=== PATIENT | female | born 1965 | race American Indian/Alaskan Native ===

== ENCOUNTER 2018-09-11 12:18 | Inpatient (IN) | payer MEDICAID, OTHER ==
--- NOTE | 2018-09-11 12:40 | Event Note ---
ED Screening Note Date of service: 09/11/18 Time: 12:38 ED Screening Note: 52 y/o female with complaint of elevated BP. Currently on losartan This initial assessment/diagnostic orders/clinical plan/treatment(s) is/are subject to change based on patients health status, clinical progression and re- assessment by fellow clinical providers in the ED. Further treatment and workup at subsequent clinical providers discretion. Patient/guardian urged not to elope from the ED as their condition may be serious if not clinically assessed and managed. Initial orders include:
[2018-09-11] MEDS ORDERED: CATAPRES PO ONE (14:16)
[2018-09-11 14:20] LABS: Basophils % (Auto) 0.7 % (0.0-1.8); Eosinophils # (Auto) 0.1 K/mm3 (0.0-0.4); Eosinophils % (Auto) 1.4 % (0.0-4.3); Hematocrit 49.1 % (30.3-42.9); Hemoglobin 16.3 gm/dl (10.1-14.3); Lymphocytes # (Auto) 2.2 K/mm3 (1.2-5.4); Lymphocytes % (Auto) 33.4 % (13.4-35.0); Mean Corpuscular HGB Conc 33 % (30-34); Mean Corpuscular Volume 89 fl (79-97); Monocytes # (Auto) 0.7 K/mm3 (0.0-0.8); Platelet Count 195 K/mm3 (140-440); Red Blood Count 5.53 M/mm3 (3.65-5.03); Red Cell Distribution Width 17.5 % (13.2-15.2)
--- NOTE | 2018-09-11 14:30 | Emergency Department Report ---
HPI - General Chief Complaint: High BP Time Seen by Provider: 09/11/18 12:37 - HPI HPI: Room 23 The patient is a 52-year-old female presenting with a chief complaint of hypertension and headache. The patient states she has had a headache and dizziness for the past 3 days. Patient states she went to see her primary physician and was found to be hypertensive. Patient was given 1 dose of clonidine and sent home. The patient states her headache and dizziness has persisted. Patient states been compliant with her blood pressure medication. The patient states she has had right sided weakness for possibly 7-8 months. Patient states she saw her primary physician about it but was not given a diagnosis. The patient states she has had numbness in her left hand constantly for 1 month. Location: [See above] Duration: [See above] Quality: [See above] Severity: [See above] Modifying factors: [see above] Context: [see above] Mode of transportation: [not driving] ED Past Medical Hx - Past Medical History Hx Hypertension: Yes (X 5 YRS) Hx Arthritis: Yes Hx COPD: Yes (no home O2) - Surgical History Past Surgical History?: No Additional Surgical History: Herniorrhaphy - Family History Family history: no significant - Social History Smoking Status: Current Every Day Smoker (1/2 pack per day) Substance Use Type: None (denies illicit drug use), Alcohol (rarely) - Medications Home Medications: Home Medications Medication Instructions Recorded Confirmed Last Taken Type Meloxicam [Mobic] 7.5 mg PO QDAY 01/15/16 01/15/16 01/17/16 07:45 History traMADol [Ultram 50 MG tab] 100 mg PO PRN PRN 01/15/16 01/15/16 01/17/16 07:45 History Cyclobenzaprine [Flexeril] 10 mg PO PRN PRN 09/11/18 09/11/18 Unknown History Losartan [Cozaar] 50 mg PO QDAY 09/11/18 09/11/18 09/10/18 History Methocarbamol [Robaxin] 500 mg PO BID 09/11/18 09/11/18 09/11/18 History Paroxetine HCl [Paxil] 20 mg PO QDAY 09/11/18 09/11/18 Unknown History Pregabalin [Lyrica] 75 mg PO QDAY 09/11/18 09/11/18 09/10/18 History hydroCHLOROthiazide [Hctz] 12.5 mg PO QAM 09/11/18 09/11/18 09/10/18 History ED Review of Systems ROS: Stated complaint: HYPERTENSION Other details as noted in HPI Constitutional: no symptoms reported Eyes: denies: eye pain ENT: denies: throat pain Respiratory: no symptoms reported Cardiovascular: denies: chest pain Endocrine: no symptoms reported Gastrointestinal: denies: abdominal pain, nausea, vomiting Genitourinary: denies: dysuria Musculoskeletal: denies: back pain Neurological: headache, vertigo Physical Exam - Physical Exam Vital Signs: Vital Signs 09/11/18 09/11/18 12:21 12:29 Temperature 97.8 F 97.8 F Pulse Rate 94 H 94 H Respiratory 18 20 Rate Blood Pressure 243/142 Blood Pressure 243/142 [Left] O2 Sat by Pulse 95 95 Oximetry Physical Exam: GENERAL: The patient is well-developed well-nourished female sitting on stretcher not appearing to be in acute distress. [] HEENT: Normocephalic. Atraumatic. Extraocular motions are intact. Patient has moist mucous membranes. NECK: Supple. Trachea midline CHEST/LUNGS: Clear to auscultation. There is no respiratory distress noted. HEART/CARDIOVASCULAR: Regular. There is no tachycardia. There is no gallop rub or murmur. ABDOMEN: Abdomen is soft, nontender. Patient has normal bowel sounds. There is no abdominal distention. SKIN: There is no rash. There is no edema. There is no diaphoresis. NEURO: The patient is awake, alert, and oriented. The patient is cooperative. There is right-sided weakness otherwise cranial nerves II through XII grossly intact. The patient has normal speech MUSCULOSKELETAL: There is no evidence of acute injury. ED Course Vital Signs 09/11/18 09/11/18 12:21 12:29 Temperature 97.8 F 97.8 F Pulse Rate 94 H 94 H Respiratory 18 20 Rate Blood Pressure 243/142 Blood Pressure 243/142 [Left] O2 Sat by Pulse 95 95 Oximetry - Reevaluation(s) Reevaluation #1: 09/11/18 15:44 Patient states her headache has decreased to approximate 6-7/10. Patient states she still has numbness to the left hand ED Medical Decision Making - Lab Data Result diagrams: 09/11/18 13:32 06/16/19 14:33 - EKG Data -: EKG Interpreted by Me EKG shows normal: sinus rhythm Rate: normal - EKG Data When compared to previous EKG there are: previous EKG unavailable Interpretation: nonspecific ST-T wave david (T-wave inversion in lead aVL) - Radiology Data Radiology results: report reviewed (CT head), image reviewed [facility] [address] [place] [address] Cat Scan Report Signed Patient: LAVONNE MENA MR#: [id number] : 1965 Acct:[id number] Age/Sex: 52 / F ADM Date: 09/11/18 Loc: ED Attending Dr: Ordering Physician: GARFIELD WICK MD Date of Service: 09/11/18 Procedure(s): CT head/brain wo con Accession Number(s): [id number] cc: GARFIELD WICK MD PROCEDURE: CT HEAD/BRAIN WO CON TECHNIQUE: Computerized tomography of the head was performed without contrast material. CT DOSE LENGTH PRODUCT: 927.7 mGycm HISTORY: hypertension, headache, dizziness COMPARISONS: None . FINDINGS: Brain: Brain density appears normal. No evidence of intracranial hemorrhage. No parenchymal hemorrhage, mass lesions or mass effect are seen. No abnormal extra- axial fluid collects or masses are seen. Ventricles: Ventricles are normal size and are midline. Bone Windows: Small amount of mucosal thickening and fluid visualized posteriorly in the sphenoid sinus suggesting acute sinusitis. Paranasal sinuses otherwise appear clear. Paranasal sinuses: Clear. Mastoid air cells: There is opacification of a few of the mastoid air cells on the right inferiorly. I cannot exclude early acute mastoiditis. Mastoid air cells bilaterally otherwise are clear. IMPRESSION: Negative unenhanced CT scan of brain. Mild paranasal sinus disease. Mucosal thickening and small amount of fluid visualized in the sphenoid sinus. I cannot exclude minimal acute sinusitis. There is opacification of a few of the mastoid air cells on the right as described. I cannot exclude early acute mastoiditis. . This document is electronically signed by Aldo Leyva MD., September 11 2018 03:21:17 PM ET Transcribed By: DFN Dictated By: ALDO LEYVA MD Electronically Authentica ct By: ALDO LEYVA MD Signed Date/Time: 09/11/18 1523 DD/ 1510 TD/TT: 09/11/18 151 - Differential Diagnosis hypertensive urgency, intracranial hemorrhage, Critical care attestation.: If time is entered above; I have spent that time in minutes in the direct care of this critically ill patient, excluding procedure time. ED Disposition Clinical Impression: Hypertensive urgency, Headache, Dizziness Disposition: OP ADMIT IP TO THIS HOSP Is pt being admited?: Yes Does the pt Need Aspirin: Yes Condition: Fair Referrals: BRANDEE REEVES MD [Primary Care Provider] - 3-5 Days Time of Disposition: 15:45 (hospitalist notified (Dr Marc))
[2018-09-11 15:08] LABS: Alanine Aminotransferase 54 units/L (7-56); Albumin 4.2 g/dL (3.9-5); BUN/Creatinine Ratio 17; Blood Urea Nitrogen 12 mg/dL (7-17); Hemolysis Index 6
--- NOTE | 2018-09-11 15:23 | Cat Scan Report ---
PROCEDURE: CT HEAD/BRAIN WO CON TECHNIQUE: Computerized tomography of the head was performed without contrast material. CT DOSE LENGTH PRODUCT: 927.7 mGycm HISTORY: hypertension, headache, dizziness COMPARISONS: None . FINDINGS: Brain: Brain density appears normal. No evidence of intracranial hemorrhage. No parenchymal hemorr danny, mass lesions or mass effect are seen. No abnormal extra-axial fluid collects or masses are see n. Ventricles: Ventricles are normal size and are midline. Bone Windows: Small amount of mucosal thickening and fluid visualized posteriorly in the sphenoid sin us suggesting acute sinusitis. Paranasal sinuses otherwise appear clear. Paranasal sinuses: Clear. Mastoid air cells: There is opacification of a few of the mastoid air cells on the right inferiorly. I cannot exclude early acute mastoiditis. Mastoid air cells bilaterally otherwise are clear. IMPRESSION: Negative unenhanced CT scan of brain. Mild paranasal sinus disease. Mucosal thickening and small amount of fluid visualized in the sphenoid sinus. I cannot exclude minimal acute sinusitis. There is opacification of a few of the mastoid air cells on the right as described. I cannot exclude early acute mastoiditis. . This document is electronically signed by Aldo Kingsley MD., September 11 2018 03:21:17 PM ET
[2018-09-11] MEDS ORDERED: ASPIRIN PO ONE (15:46)
--- NOTE | 2018-09-11 16:11 | History and Physical Report ---
History of Present Illness Chief complaint: confused History of present illness: 52 Yo Female with Nicotine Dependence, OA, HTN, COPD presents to ED for evaluation. Pt is lethargic and provides limited history at time of exam. Pt history taken from ED staff and medical record. Pt was seen and evaluated by her PCP and complained of headache over the past 3 days. Pt SBP was above 240. Pt instructed to seek further care at [facility]. Pt transported to [facility] via private vehicle. Pt seen and evaluated in ED and found to have Hypertensive Emergency, Hypertensive Encephalopathy. Pt admitted to telemetry but subsequently downg raded to medical floor with rapid response to antihypertensive therapy. No reports of fever, chills, chest pain, palpitations, NVD, Trauma, productive cough, skin rash or recent ill contacts. No prior admission for review. All listed medication reconciled at time of exam. Past History Past Medical History: arthritis, COPD, hypertension Past Surgical History: hernia repair Social history: single, smoking Family history: hypertension Medications and Allergies Allergies Allergy/AdvReac Type Severity Reaction Status Date / Time No Known Allergies Allergy Verified 09/11/18 12:19 Home Medications Medication Instructions Recorded Confirmed Last Taken Type Meloxicam [Mobic] 15 mg PO QDAY 01/15/16 09/11/18 09/10/18 History traMADol [Ultram 50 MG tab] 50 mg PO PRN PRN 01/15/16 09/11/18 09/11/18 History Cyclobenzaprine [Flexeril] 10 mg PO PRN PRN 09/11/18 09/11/18 Unknown History Losartan [Cozaar] 50 mg PO QDAY 09/11/18 09/11/18 09/10/18 History Methocarbamol [Robaxin] 500 mg PO BID 09/11/18 09/11/18 09/11/18 History Paroxetine HCl [Paxil] 20 mg PO QDAY 09/11/18 09/11/18 Unknown History Pregabalin [Lyrica] 75 mg PO QDAY 09/11/18 09/11/18 09/10/18 History hydroCHLOROthiazide [Hctz] 12.5 mg PO QAM 09/11/18 09/11/18 09/10/18 History Review of Systems ROS unobtainable: due to mental status Exam - Constitutional Vitals: Temp Pulse Resp BP Pulse Ox 97.8 F 52 L 18 175/92 93 09/11/18 12:29 09/11/18 15:57 09/11/18 15:57 09/11/18 15:57 09/11/18 15:57 General appearance: Present: mild distress, obese - EENT Eyes: Present: PERRL ENT: hearing intact, clear oral mucosa - Neck Neck: Present: supple, normal ROM - Respiratory Respiratory effort: normal Respiratory: bilateral: diminished, rhonchi - Cardiovascular Heart Sounds: Present: S1 & S2. Absent: rub, click - Extremities Extremities: pulses symmetrical, No edema Peripheral Pulses: within normal limits - Abdominal General gastrointestinal: Present: soft, non-tender, non-distended, normal bowel sounds Female genitourinary: Present: normal - Integumentary Integumentary: Present: clear, warm, dry - Musculoskeletal Musculoskeletal: generalized weakness - Psychiatric Psychiatric: no appropriate mood/affect, no intact judgment & insight, no memory intact - Neurologic Neurologic: CNII-XII intact, moves all extremities, no gait normal Results - Labs CBC & Chem 7: 09/11/18 13:32 09/11/18 14:33 Labs: Abnormal lab results 09/11/18 09/11/18 Range/Units 13:32 14:33 RBC 5.53 H (3.65-5.03) M/mm3 Hgb 16.3 H (10.1-14.3) gm/dl Hct 49.1 H (30.3-42.9) % RDW 17.5 H (13.2-15.2) % Taney % (Auto) 10.0 H (0.0-7.3) % Glucose 113 H (65-100) mg/dL Alkaline Phosphatase 311 H (35-129) units/L Total Protein 8.4 H (6.3-8.2) g/dL Assessment and Plan - Patient Problems (1) Encephalopathy Current Visit: Yes Status: Acute Plan to address problem: CT Head, neuro check, seizure precautions, blood pressure control. (2) Hypertensive urgency Current Visit: Yes Status: Acute Plan to address problem: Monitor BP q shift, supportive care, IV hydralazine prn SBP >185, goal systolic BP overnight between 165-184, (3) Obesity hypoventilation syndrome Current Visit: Yes Status: Acute Plan to address problem: supplemental oxygen, nebulizer therapy, NIPPV as clinically indicated, balanced diet, increased physical activity at discharge (4) DVT prophylaxis Current Visit: Yes Status: Acute Plan to address problem: SCD to BLE while in bed,
[2018-09-11] MEDS ORDERED: PERCOCET 5/325 PO PRN (16:13)
[2018-09-11] MEDS ORDERED: SODIUM CHLORIDE FLUSH SYRINGE 10 ML IV PRN (16:13)
[2018-09-11] MEDS ORDERED: ULTRAM PO PRN (16:15)
[2018-09-11] MEDS ORDERED: FLEXERIL PO PRN (16:15)
[2018-09-11] MEDS ORDERED: APRESOLINE IV PRN (16:17)
[2018-09-11] MEDS ORDERED: ASPIRIN ONE (17:06)
[2018-09-11] MEDS: ROBAXIN PO SCH (22:10)
[2018-09-11] MEDS: SODIUM CHLORIDE FLUSH SYRINGE 10 ML IV SCH (22:10)
[2018-09-12] MEDS ORDERED: PAROXETINE HCL 20 MG PO SCH (10:00)
[2018-09-12] MEDS ORDERED: COZAAR PO SCH (10:00)
[2018-09-12] MEDS ORDERED: COZAAR ONE (10:14)
[2018-09-12] MEDS ORDERED: HCTZ ONE (10:15)
[2018-09-12] MEDS: HCTZ PO SCH (10:41)
[2018-09-12] MEDS: LYRICA PO SCH (10:41)
[2018-09-12] MEDS: MOBIC PO SCH (10:41)
[2018-09-12] MEDS: PAXIL PO SCH (10:42)
[2018-09-12] MEDS: ROBAXIN PO SCH ×2 (10:42→22:24)
[2018-09-12] MEDS: SODIUM CHLORIDE FLUSH SYRINGE 10 ML IV SCH ×2 (11:27→22:25)
--- NOTE | 2018-09-12 13:38 | Cat Scan Report ---
PROCEDURE: CT CERVICAL SPINE WO CON TECHNIQUE: Computerized tomography of the cervical spine was performed from the skull base to T1 with out contrast material. Coronal and sagittal reconstructed imaging provided. This study is performed w ithout intravenous contrast and the sensitivity for pathology, including neoplasms, adenopathy, absce ss, inflammation and infection is reduced. CT DOSE LENGTH PRODUCT: 721 mGy-cm. HISTORY: tia COMPARISONS: None currently available. FINDINGS: There is no fracture. There is no subluxation. There is no atlantooccipital dislocation. C1-C2: Intact. C2-T1: Mild to moderate degenerative discs. Minimal to mild spinal canal narrowing. Some neural soto inal narrowing. Prevertebral soft tissues are unremarkable. Heterogenous, enlarged thyroid gland. A distinct nodule is not evident; however, nodules are not excl uded. IMPRESSION: * No reference lines provided. * No acute fracture. * Degenerative discs and arthropathy. * Enlarged heterogeneous thyroid. This document is electronically signed by Len Murphy MD., September 12 2018 01:36:27 PM ET
--- NOTE | 2018-09-12 13:48 | Magnetic Resonance Report ---
MRI OF THE BRAIN WITHOUT CONTRAST: HISTORY: CVA PROCEDURE: Multiplanar, multisequence MR imaging of the brain without IV contrast was performed. FINDINGS: Compared to the CT dated 09/11/18. A 1.8 x 1.6 x 1.1 cm extramedullary intradural mass is suspected at the craniocervical junction which exerts mass effect on the upper cervical spine/medulla. Severe central canal stenosis is demonstrated at the C1 level. Although no IV contrast was administered, I suspect this represents a meningioma. Further evaluation with MRI with contrast is recommended. There are moderate nonspecific chronic white matter changes bilaterally. Otherwise, the brain parenchyma signal intensity and its brothers white interface are within normal limits on all sequences. No evidence for acute ischemia or hemorrhage. No chronic infarct or extra-axial fluid collection. The midline structures are central. The basal cisterns are patent. Normal ventricular size. The orbital cavities and sella turcica demonstrate no abnormality. The visualized paranasal sinuses and mastoid air cells are well aerated. IMPRESSION: Mass at the craniocervical junction is identified as outlined above. There is significant mass effect on the upper spinal cord/medulla resulting in severe canal stenosis at the C1 level. This appears to represent an extra medullary, intradural mass consistent with a meningioma. Further evaluation with MRI cervical spine with contrast including the craniocervical junction is recommended. Nonspecific white matter changes.
--- NOTE | 2018-09-12 14:40 | Progress Note ---
Assessment and Plan Assessment and plan: 52 Yo Female with Nicotine Dependence, OA, HTN, COPD presents to ED for evaluation. Pt is lethargic and provides limited history at time of exam. Pt initial history taken from ED staff and medical record. Pt was seen and evaluated by her PCP and complained of headache over the past 3 days. Pt SBP was above 240. On further discussion the patient reports that while visiting her primary pain specialist she was asked to go see her PCP as they felt she may have had a stroke and her PCP sent her to the ED for further evaluation. Patient on arrival had improvement to antihypertensive therapy with improvement in the Headache, but on further discussion she reports a concerning story of right upper ext for about 6 months and 1 month of ongoing and worsening parasthesia. she also has a chronic right hip pain for which she is followed by pain clinic. Bilateral Parastheisa rule out CERVIACAL RADICULOPATHY Hypertensive Urgency Toxic Metabolic Encephlopathy-Resolving Morbid obesity Headache secondary to hypertension Plan Neurology eval Continue BP meds, adjust losartan to 100mg for better control Will obtain MRI HEAD AND CERVICAL SPINE CT DUE TO EVALUATE CERVICAL SPINE ISSUES THAT MAY LED TO THIS Discussed with Radiology, there is concern for Meningoma and with mass effect, awaiting full report, awaiting MRI Cervical spine with contrast Based on the result of the MRI cervical spine, the patient may need transfer to a tertiary facility ASA, STATIN DVT/GI PROPHY NEUROCHECKS Plan discussed with pcp History Interval history: Patient seen and examined, headache is resolved, but her symptoms although ongoing for about 6 months and now in the last month with parasthesia of the left upper ext. Hospitalist Physical - Physical exam Narrative exam: VITAL SIGNS: Reviewed. GENERAL: The patient appeared well nourished and normally developed, Vital signs as documented. HEAD: No signs of head trauma. EYES: Pupils are equal. Extraocular motions intact. EARS: Hearing grossly intact. MOUTH: Oropharynx is normal. NECK: No adenopathy, no JVD. CHEST: Chest with clear breath sounds bilaterally. No wheezes, rales, or rhonchi. CARDIAC: Regular rate and rhythm. S1 and S2, without murmurs, gallops, or rubs. VASCULAR: No Edema. Peripheral pulses normal and equal in all extremities. ABDOMEN: Soft, non tender and non distended. No rebound or guarding, and no masses palpated. Bowel Sounds normal. MUSCULOSKELETAL: Good range of motion of all major joints. Extremities without clubbing, cyanosis or edema. NEUROLOGIC EXAM: Alert and oriented x 3 4/5 motor strenth bilaterally. Speech normal. Follows commands. PSYCHIATRIC: Mood normal. SKIN: No rash or lesions. - Constitutional Vitals: Temp Pulse Resp BP Pulse Ox 97.8 F 55 L 19 171/96 92 09/11/18 12:29 09/12/18 11:46 09/12/18 11:46 09/12/18 11:46 09/12/18 11:46 General appearance: Present: mild distress, obese Results - Labs CBC & Chem 7: 09/11/18 13:32 09/11/18 14:33 Labs: Laboratory Last Values WBC 6.7 K/mm3 (4.5-11.0) 09/11/18 13:32 RBC 5.53 M/mm3 (3.65-5.03) H 09/11/18 13:32 Hgb 16.3 gm/dl (10.1-14.3) H 09/11/18 13:32 Hct 49.1 % (30.3-42.9) H 09/11/18 13:32 MCV 89 fl (79-97) 09/11/18 13:32 MCH 29 pg (28-32) 09/11/18 13:32 MCHC 33 % (30-34) 09/11/18 13:32 RDW 17.5 % (13.2-15.2) H 09/11/18 13:32 Plt Count 195 K/mm3 (140-440) 09/11/18 13:32 Lymph % (Auto) 33.4 % (13.4-35.0) 09/11/18 13:32 Osborne % (Auto) 10.0 % (0.0-7.3) H 09/11/18 13:32 Eos % (Auto) 1.4 % (0.0-4.3) 09/11/18 13:32 Baso % (Auto) 0.7 % (0.0-1.8) 09/11/18 13:32 Lymph # 2.2 K/mm3 (1.2-5.4) 09/11/18 13:32 Osborne # 0.7 K/mm3 (0.0-0.8) 09/11/18 13:32 Eos # 0.1 K/mm3 (0.0-0.4) 09/11/18 13:32 Baso # 0.0 K/mm3 (0.0-0.1) 09/11/18 13:32 Seg Neutrophils % 54.5 % (40.0-70.0) 09/11/18 13:32 Seg Neutrophils # 3.6 K/mm3 (1.8-7.7) 09/11/18 13:32 Sodium 141 mmol/L (137-145) 09/11/18 14:33 Potassium 4.2 mmol/L (3.6-5.0) 09/11/18 14:33 Chloride 101.7 mmol/L (98-107) 09/11/18 14:33 Carbon Dioxide 28 mmol/L (22-30) 09/11/18 14:33 16 mmol/L 09/11/18 14:33 BUN 12 mg/dL (7-17) 09/11/18 14:33 0.7 mg/dL (0.7-1.2) 09/11/18 14:33 Estimated GFR > 60 ml/min 09/11/18 14:33 17 % 09/11/18 14:33 Glucose 113 mg/dL (65-100) H 09/11/18 14:33 Calcium 10.0 mg/dL (8.4-10.2) 09/11/18 14:33 0.70 mg/dL (0.1-1.2) 09/11/18 14:33 AST 30 units/L (5-40) 09/11/18 14:33 ALT 54 units/L (7-56) 09/11/18 14:33 311 units/L (35-129) H 09/11/18 14:33 8.4 g/dL (6.3-8.2) H 09/11/18 14:33 4.2 g/dL (3.9-5) 09/11/18 14:33 1.0 % 09/11/18 14:33 Active Medications - Current Medications Current Medications: Generic Name Dose Route Start Last Admin Trade Name Freq PRN Reason Stop Dose Admin Aspirin 325 mg 09/13/18 10:00 Aspirin PO QDAY [facility] Atorvastatin Calcium 40 mg 09/12/18 22:00 Lipitor PO QHS AVIS Cyclobenzaprine HCl 10 mg 09/11/18 16:15 Flexeril PO Q8H PRN Pain, Moderate (4-6) Enoxaparin Sodium 40 mg 09/12/18 22:00 Lovenox SUB-Q QDAY@2200 AVIS Hydralazine HCl 10 mg 09/11/18 16:17 Apresoline IV Q4H PRN Hypertension SBP > 185 Hydrochlorothiazide 12.5 mg 09/12/18 10:00 09/12/18 10:41 Hctz PO 12.5 mg QAM AVIS Administration Losartan Potassium 50 mg 09/12/18 10:00 09/12/18 10:41 Cozaar PO 50 mg QDAY AVIS Administration Meloxicam 15 mg 09/12/18 10:00 09/12/18 10:41 Mobic PO 15 mg QDAY [facility]IS Administration Methocarbamol 500 mg 09/11/18 22:00 09/12/18 10:42 Robaxin PO 500 mg BID AVIS Administration Oxycodone/Acetaminophen 1 tab 09/11/18 16:13 Percocet 5/325 PO Q6H PRN Pain, Moderate (4-6) Paroxetine HCl 20 mg 09/12/18 10:00 09/12/18 10:42 Paxil PO 20 mg DAILY [facility]IS Administration Pregabalin 75 mg 09/12/18 10:00 09/12/18 10:41 Lyrica PO 75 mg QDAY AVIS Administration Sodium Chloride 10 ml 09/11/18 22:00 09/12/18 11:27 Sodium Chloride Flush Syringe 10 Ml IV 10 ml BID AVIS Administration Sodium Chloride 10 ml 09/11/18 16:13 Sodium Chloride Flush Syringe 10 Ml IV PRN PRN LINE FLUSH Tramadol HCl 50 mg 09/11/18 16:15 Ultram PO Q8H PRN Pain, MILD
[2018-09-12] MEDS ORDERED: COZAAR PO ONE (15:00)
--- NOTE | 2018-09-12 17:40 | Consultation ---
History of Present Illness Consult date: 09/12/18 Chief complaint: RUE paresthesias History of present illness: This is a 52 YO F who has had weakness and paresthesias for about 6 months. She came to the ED because of headache and high blood pressure. Those symptoms are improving. She had an MRI Brain that shows a meningioma that may has some mass effect on the cervical spine. [facility] for this. Past History Past Medical History: arthritis, COPD, hypertension Past Surgical History: hernia repair Social history: single, smoking Family history: hypertension Medications and Allergies Allergies Allergy/AdvReac Type Severity Reaction Status Date / Time No Known Allergies Allergy Verified 09/11/18 12:19 Home Medications Medication Instructions Recorded Confirmed Last Taken Type Meloxicam [Mobic] 15 mg PO QDAY 01/15/16 09/11/18 09/10/18 History traMADol [Ultram 50 MG tab] 50 mg PO PRN PRN 01/15/16 09/11/18 09/11/18 History Cyclobenzaprine [Flexeril] 10 mg PO PRN PRN 09/11/18 09/11/18 Unknown History Losartan [Cozaar] 50 mg PO QDAY 09/11/18 09/11/18 09/10/18 History Methocarbamol [Robaxin] 500 mg PO BID 09/11/18 09/11/18 09/11/18 History Paroxetine HCl [Paxil] 20 mg PO QDAY 09/11/18 09/11/18 Unknown History Pregabalin [Lyrica] 75 mg PO QDAY 09/11/18 09/11/18 09/10/18 History hydroCHLOROthiazide [Hctz] 12.5 mg PO QAM 09/11/18 09/11/18 09/10/18 History Active Meds: Active Medications Aspirin (Aspirin) 325 mg PO QDAY [facility] Atorvastatin Calcium (Lipitor) 40 mg PO QHS [facility] Cyclobenzaprine HCl (Flexeril) 10 mg PO Q8H PRN PRN Reason: Pain, Moderate (4-6) Enoxaparin Sodium (Lovenox) 40 mg SUB-Q QDAY@2200 [facility] Hydralazine HCl (Apresoline) 10 mg IV Q4H PRN PRN Reason: Hypertension SBP > 185 Hydrochlorothiazide (Hctz) 12.5 mg PO QAM [facility] Last Admin: 09/12/18 10:41 Dose: 12.5 mg Documented by: Losartan Potassium (Cozaar) 100 mg PO QDAY [facility] Meloxicam (Mobic) 15 mg PO QDAY [facility] Last Admin: 09/12/18 10:41 Dose: 15 mg Documented by: Methocarbamol (Robaxin) 500 mg PO BID [facility] Last Admin: 09/12/18 10:42 Dose: 500 mg Documented by: Oxycodone/Acetaminophen (Percocet 5/325) 1 tab PO Q6H PRN PRN Reason: Pain, Moderate (4-6) Paroxetine HCl (Paxil) 20 mg PO DAILY [facility] Last Admin: 09/12/18 10:42 Dose: 20 mg Documented by: Pregabalin (Lyrica) 75 mg PO QDAY [facility] Last Admin: 09/12/18 10:41 Dose: 75 mg Documented by: Sodium Chloride (Sodium Chloride Flush Syringe 10 Ml) 10 ml IV BID [facility] Last Admin: 09/12/18 11:27 Dose: 10 ml Documented by: Sodium Chloride (Sodium Chloride Flush Syringe 10 Ml) 10 ml IV PRN PRN PRN Reason: LINE FLUSH Tramadol HCl (Ultram) 50 mg PO Q8H PRN PRN Reason: Pain, MILD Review of Systems Musculoskeletal: arm numbness/tingling Physical Examination - Vital Signs Vital Signs: Vital Signs Temp Pulse Resp BP Pulse Ox 97.8 F 94 H 18 243/142 95 09/11/18 12:21 09/11/18 12:21 09/11/18 12:21 09/11/18 12:21 09/11/18 12:21 - Constitutional General appearance: comfortable - EENT EENT: Present: PERRL - Respiratory Respiratory: Present: lungs clear - Cardiovascular Cardiovascular: Present: regular rate - Gastrointestinal Gastrointestinal: Present: normoactive bowel sounds - Neurologic Cranial nerve examination: PERRL, EOMI, VFF, V1/V2/V3 grossly intact, face symmetric Speech examination: intact Motor examination - right side: 3/5: hip flexors, knee extensors, dorsiflexion, toe extension (EHL), 4/5: biceps, triceps, wrist flexion, 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, 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 Motor examination - left side: 5/5: biceps, triceps, wrist flexion, 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, 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, hip flexors, knee extensors, dorsiflexion, toe extension (EHL), plantarflexion Reflexes: 1+: ankle, bicep, knee, tricep Results - Laboratory Findings CBC and BMP: 09/11/18 13:32 09/11/18 14:33 Abnormal Lab Findings: Abnormal Labs 09/11/18 09/11/18 13:32 14:33 RBC 5.53 H Hgb 16.3 H Hct 49.1 H RDW 17.5 H [place] % (Auto) 10.0 H Glucose 113 H Alkaline Phosphatase 311 H Total Protein 8.4 H - Diagnostic Findings Additional findings: MR Brain- brain is fine, mass effect from a likely meningioma Assessment and Plan This is a 52 YO F with a meningioma causing mass effect on the cervical spine and weakness. Recommend: Agree with MR cervical spine w/wo as you are doing but pt will ultimately need neurosurgical eval for likely removal. Will also start Decadron for edema, please cover with SSI if needed Follow BP closely now that pt will be on steroids Continue care for all medical issues as you are doing Call with questions.
[2018-09-12] MEDS ORDERED: DECADRON IV ONE ×2 (17:44→23:00)
--- NOTE | 2018-09-12 21:21 | Vascular Lab Report ---
PROCEDURE: VL CAROTID DUPLEX BILAT TECHNIQUE: Duplex Doppler ultrasound of the common, internal and external carotid arteries and the v ertebral arteries was performed bilaterally. Ly scale imaging, velocity spectral waveform analysis, and color flow Doppler were employed. HISTORY: tia COMPARISONS: None . Note: Measurement of carotid stenosis is based on flow velocity values that correlate with the [place] Symptomatic Carotid Endarterectomy Trial (NASCET) based stenosis criteria using the internal carotid artery diameter as the denominator for stenosis calculation. FINDINGS: RIGHT carotid artery: Velocities: ICA PSV: 75 cm/sec ICA End diastolic: 14 cm/sec CCA PSV: 90 cm/sec IC/CC ratio: 0.8 Plaque/color flow: Mild heterogeneous plaque without significant spectral broadening or abnormal col or flow . RIGHT vertebral artery: Antegrade systolic and diastolic flow LEFT carotid artery: Velocities: ICA PSV: 79 cm/sec ICA End diastolic: 19 cm/sec CCA PSV: 90 cm/sec IC/CC ratio: 0.9 Plaque/color flow: Mild heterogeneous plaque without significant spectral broadening or abnormal col or flow . LEFT vertebral artery: Antegrade systolic and diastolic flow IMPRESSION: 1. RIGHT carotid: No evidence of stenosis. 2. LEFT carotid: No evidence of stenosis. 3. Vertebral arteries: Bilaterally antegrade. This document is electronically signed by Prabhjot Woo MD., September 12 2018 09:18:58 PM ET
[2018-09-12] MEDS ORDERED: DECADRON IV SCH (22:00)
[2018-09-12] MEDS: LOVENOX SUB-Q SCH (22:25)
[2018-09-12] MEDS ORDERED: MIRALAX 3350 PO PRN (23:03)
[2018-09-12] MEDS: COLACE PO SCH (23:41)
[2018-09-13] MEDS: DECADRON IV SCH ×4 (03:56→23:08)
[2018-09-13 06:50] LABS: Chol/HDL Ratio 3.89 %
[2018-09-13] MEDS: COZAAR PO SCH ×2 (08:38→09:22)
[2018-09-13] MEDS: HCTZ PO SCH ×2 (08:39→09:22)
[2018-09-13] MEDS: COLACE PO SCH ×2 (09:21→22:03)
[2018-09-13] MEDS: ROBAXIN PO SCH ×2 (09:21→22:02)
[2018-09-13] MEDS: PAXIL PO SCH (09:21)
[2018-09-13] MEDS: MOBIC PO SCH (09:21)
[2018-09-13] MEDS: ASPIRIN PO SCH (09:22)
[2018-09-13] MEDS: LYRICA PO SCH (09:23)
[2018-09-13] MEDS: SODIUM CHLORIDE FLUSH SYRINGE 10 ML IV SCH ×2 (09:23→22:04)
--- NOTE | 2018-09-13 15:01 | Magnetic Resonance Report ---
MR CERVICAL SPINE WITH AND WITHOUT CONTRAST HISTORY: Meningioma with mass effect. TECHNIQUE: Axial T2 and T2 gradient. Sagittal T1, T2 and STIR. Post contrast T1 fat-sat images and axial and sagittal planes. COMPARISON: MR brain without contrast 09/12/18. CT cervical spine without contrast 09/12/18. FINDINGS: A 1.6 x 1.1 x 2.5 cm homogeneously enhancing extra axial mass is identified within the spinal canal at the level of C1. This is located just posterior to the dens. A dural tail is identified confirming a meningioma. This meningioma exerts mass effect on the right side of the spinal cord and results in severe central canal narrowing at the level of C1. There is however no abnormal signal within the spinal cord. Normal height and alignment of the cervical vertebral bodies. Normal bone marrow signal. Mild used disc desiccation and narrowing. The facet joints are in appropriate relationship. No significant joint pathology or hypertrophic changes. The paraspinal soft tissues are within normal limits. C2-3: No significant abnormality. C3-4: Moderate left uncovertebral spurring is identified resulting in left neuroforaminal stenosis estimated at 50-75 %. C4-5: No significant abnormality. C5-6: No significant abnormality. C6-7: No significant abnormality. C7-T1: A mild diffuse posterior bulging disc is identified. Mild bilateral uncovertebral spurring. Bilateral neural foraminal narrowing is estimated at 50%. 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 Mild cervical spondylosis. No evidence for fracture or malalignment.
--- NOTE | 2018-09-13 18:30 | Progress Note ---
Assessment and Plan Assessment and plan: 52 Yo Female with Nicotine Dependence, OA, HTN, COPD presents to ED for evaluation. Pt is lethargic and provides limited history at time of exam. Pt initial history taken from ED staff and medical record. Pt was seen and evaluated by her PCP and complained of headache over the past 3 days. Pt SBP was above 240. On further discussion the patient reports that while visiting her primary pain specialist she was asked to go see her PCP as they felt she may have had a stroke and her PCP sent her to the ED for further evaluation. Patient on arrival had improvement to antihypertensive therapy with improvement in the Headache, but on further discussion she reports a concerning story of right upper ext numbness and tingling for about 6 months and 1 month of ongoing and worsening paraesthesia. she also has a chronic right hip pain for which she is followed by pain clinic. Bilateral Parastheisa rule out CERVIACAL RADICULOPATHY Hypertensive Urgency Toxic Metabolic Encephlopathy-Resolving Morbid obesity Headache secondary to hypertension Plan Neurology eval done Continue BP meds. Losartan dose increased to 100mg for better control Hospitalist discussed with Radiology, there is concern for Meningoma and with mass effect, awaiting full report, awaiting MRI Cervical spine with contrast ASA, STATIN DVT/GI PROPHY NEUROCHECKS Addendum MRI Cervical spine with contrast reveals intraspinal meningioma at level of C1 with mass effect on upper cervical spine. Will discuss with Neurology History Interval history: Numbness and tingling right upper and lower ext Hospitalist Physical - Physical exam Narrative exam: Gen: Not in acute distress, lying in bed,morbidly obese HEENT: Normocephalic, atraumatic Neck: supple, no JVD Heart: S1 and S2 reg, no murmurs, rubs or gallop Lungs: Clear, no crackles, no wheeze Abd: soft, non tender, non distended, normal BS Ext: No edema, no clubbing, no cyanosis, Neuro: Awake,alert, oriented x 3, paraesthesia right side, right sided weakness 3/5 - Constitutional Vitals: Temp Pulse Resp BP Pulse Ox 98.0 F 78 16 164/93 94 09/13/18 11:32 09/13/18 11:30 09/13/18 11:32 09/13/18 11:30 09/13/18 11:30 General appearance: Present: obese Results - Labs CBC & Chem 7: 09/11/18 13:32 09/11/18 14:33 Labs: Laboratory Last Values WBC 6.7 K/mm3 (4.5-11.0) 09/11/18 13:32 RBC 5.53 M/mm3 (3.65-5.03) H 09/11/18 13:32 Hgb 16.3 gm/dl (10.1-14.3) H 09/11/18 13:32 Hct 49.1 % (30.3-42.9) H 09/11/18 13:32 MCV 89 fl (79-97) 09/11/18 13:32 MCH 29 pg (28-32) 09/11/18 13:32 MCHC 33 % (30-34) 09/11/18 13:32 RDW 17.5 % (13.2-15.2) H 09/11/18 13:32 Plt Count 195 K/mm3 (140-440) 09/11/18 13:32 Lymph % (Auto) 33.4 % (13.4-35.0) 09/11/18 13:32 [place] % (Auto) 10.0 % (0.0-7.3) H 09/11/18 13:32 Eos % (Auto) 1.4 % (0.0-4.3) 09/11/18 13:32 Baso % (Auto) 0.7 % (0.0-1.8) 09/11/18 13:32 Lymph # 2.2 K/mm3 (1.2-5.4) 09/11/18 13:32 [place] # 0.7 K/mm3 (0.0-0.8) 09/11/18 13:32 Eos # 0.1 K/mm3 (0.0-0.4) 09/11/18 13:32 Baso # 0.0 K/mm3 (0.0-0.1) 09/11/18 13:32 Seg Neutrophils % 54.5 % (40.0-70.0) 09/11/18 13:32 Seg Neutrophils # 3.6 K/mm3 (1.8-7.7) 09/11/18 13:32 Sodium 141 mmol/L (137-145) 09/11/18 14:33 Potassium 4.2 mmol/L (3.6-5.0) 09/11/18 14:33 Chloride 101.7 mmol/L (98-107) 09/11/18 14:33 Carbon Dioxide 28 mmol/L (22-30) 09/11/18 14:33 16 mmol/L 09/11/18 14:33 BUN 12 mg/dL (7-17) 09/11/18 14:33 0.7 mg/dL (0.7-1.2) 09/11/18 14:33 Estimated GFR > 60 ml/min 09/11/18 14:33 17 % 09/11/18 14:33 Glucose 113 mg/dL (65-100) H 09/11/18 14:33 Calcium 10.0 mg/dL (8.4-10.2) 09/11/18 14:33 0.70 mg/dL (0.1-1.2) 09/11/18 14:33 AST 30 units/L (5-40) 09/11/18 14:33 ALT 54 units/L (7-56) 09/11/18 14:33 311 units/L (35-129) H 09/11/18 14:33 8.4 g/dL (6.3-8.2) H 09/11/18 14:33 4.2 g/dL (3.9-5) 09/11/18 14:33 1.0 % 09/11/18 14:33 Triglycerides 49 mg/dL (2-149) 09/13/18 05:59 Cholesterol 214 mg/dL (50-199) H 09/13/18 05:59 149 mg/dL (50-130) H 09/13/18 05:59 55 mg/dL (40-59) 09/13/18 05:59 3.89 % 09/13/18 05:59 Active Medications - Current Medications Current Medications: Generic Name Dose Route Start Last Admin Trade Name Freq PRN Reason Stop Dose Admin Aspirin 325 mg 09/13/18 10:00 09/13/18 09:22 Aspirin PO 325 mg QDAY [facility] Administration Atorvastatin Calcium 40 mg 09/12/18 22:00 09/12/18 22:24 Lipitor PO 40 mg QHS [facility] Administration Cyclobenzaprine HCl 10 mg 09/11/18 16:15 Flexeril PO Q8H PRN Pain, Moderate (4-6) Dexamethasone 4 mg 09/13/18 04:00 09/13/18 09:21 Decadron IV 4 mg 0400,1000,1600,2200 [facility] Administration Docusate Sodium 100 mg 09/12/18 23:45 09/13/18 09:21 Colace PO 100 mg BID [facility] Administration Enoxaparin Sodium 40 mg 09/12/18 22:00 09/12/18 22:25 Lovenox SUB-Q 40 mg QDAY@2200 [facility] Administration Hydralazine HCl 10 mg 09/11/18 16:17 Apresoline IV Q4H PRN Hypertension SBP > 185 Hydrochlorothiazide 12.5 mg 09/12/18 10:00 09/13/18 09:22 Hctz PO Not Given QAM [facility] Losartan Potassium 100 mg 09/13/18 10:00 09/13/18 09:22 Cozaar PO Not Given QDAY [facility] Meloxicam 15 mg 09/12/18 10:00 09/13/18 09:21 Mobic PO 15 mg QDAY [facility] Administration Methocarbamol 500 mg 09/11/18 22:00 09/13/18 09:21 Robaxin PO 500 mg BID [facility] Administration Oxycodone/Acetaminophen 1 tab 09/11/18 16:13 Percocet 5/325 PO Q6H PRN Pain, Moderate (4-6) Paroxetine HCl 20 mg 09/12/18 10:00 09/13/18 09:21 Paxil PO 20 mg DAILY [facility] Administration Polyethylene Glycol 17 gm 09/12/18 23:03 Miralax 3350 PO QDAY PRN Constipation Pregabalin 75 mg 09/12/18 10:00 09/13/18 09:23 Lyrica PO 75 mg QDAY [facility] Administration Sodium Chloride 10 ml 09/11/18 22:00 09/13/18 09:23 Sodium Chloride Flush Syringe 10 Ml IV 10 ml BID [facility] Administration Sodium Chloride 10 ml 09/11/18 16:13 Sodium Chloride Flush Syringe 10 Ml IV PRN PRN LINE FLUSH Tramadol HCl 50 mg 09/11/18 16:15 Ultram PO Q8H PRN Pain, MILD
[2018-09-13] MEDS: LOVENOX SUB-Q SCH (22:02)
[2018-09-14] MEDS: DECADRON IV SCH ×3 (03:52→18:49)
[2018-09-14 08:16] LABS: Hematocrit 49.1 % (30.3-42.9); Hemoglobin 16.4 gm/dl (10.1-14.3); Mean Corpuscular HGB Conc 33 % (30-34); Mean Corpuscular Volume 89 fl (79-97); Platelet Count 193 K/mm3 (140-440); Red Blood Count 5.53 M/mm3 (3.65-5.03); Red Cell Distribution Width 17.4 % (13.2-15.2)
[2018-09-14 08:28] LABS: BUN/Creatinine Ratio 21; Blood Urea Nitrogen 15 mg/dL (7-17); Calcium 9.6 mg/dL (8.4-10.2); Hemolysis Index 12
--- NOTE | 2018-09-14 09:05 | Progress Note ---
Assessment and Plan - Patient Problems (1) Meningioma, spinal Current Visit: Yes Status: Acute Plan to address problem: MRI of the brain showed a meningioma of the cervical spine at the level of C1 with mass effect on the spinal narrowing. She'll would need further evaluation including neurology and neurosurgical consults and treatments including an occlusion of the obstructing meningioma with mass effect. Patient will need to transfer to a tertiary center will initiate consult with [facility] in view of no neurosurgeon at this facility Hospital (2) Headache Current Visit: Yes Status: Acute Qualifiers: Headache chronicity pattern: chronic headache Intractability: not intractable Plan to address problem: On work up including CT of the brain showed no mass lesion in the brain will continue to monitor and treat. Headache possibly related to ongoing mass effect with a meningioma (3) Hypertensive urgency Current Visit: Yes Status: Acute Plan to address problem: Blood pressure is controlled on current medication will continue to monitor and adjust for optimal control of blood pressure Subjective Date of service: 09/14/18 Principal diagnosis: hypertensive emergency, headache, cervical spine meningioma Interval history: Patient seen and examined and chart reviewed, consultants is reviewed as well a sreview of imaging studies included MRI of the cervical spine . Patient is well known to me from outpatient management. Patient also the office with elevated blood pressure was referred to the emergency room as well as initially admitted to the hospitalist service patient back to my service. Patient has ongoing pain in the right upper extremities with associated numbness for whicjh patient was being worked up as outpatient. Upon evaluation in the emergency department. She was found to have persistent elevated systolic blood pressure of 240. Patient's blood pressure has not been controlled however ongoing work up during this hospitalization included an MRI of the cervical spine showed meningioma of the cervical spine at the level of C1 with mass effect causing significant stenosis at level of C1 . Patient denied any chest pain or shortness of breath at this time but has ongoing pain in the neck, upper extremity as well as lower extremity on the right side with associated numbness of the right upper extremity, denied dizziness no fever or chills. Objective - Exam Narrative Exam: GENERAL:Patient is not in acute distresse HEENT: Head examination showed normocephalic. Patient is not pale, not jaundiced, and not cyanosed. Mucous membrane is moist, pharynx is clear, no exudates or hemorrhage. Dentition is normal. NECK: Supple. Neck showed good range of motion. There is no adenopathy noted. No jugular venous distention and no thyromegaly. Neck auscultation showed no carotid bruit. CHEST/LUNGS: Good air exchange bilaterally. Clear to auscultation. There is no respiratory distress noted. Chest percussion normal, symmetrical chest movements with no chest wall tenderness. HEART/CARDIOVASCULAR: No murmur. Regular rate and rhythm. S1 and S2 only, no S3 gallop, no S4. ABDOMEN: Abdomen is soft, nontender. Patient has normal bowel sounds. There is no abdominal distention. Liver and spleen not palpably enlarged. SKIN: There is no rash. There is no edema. There is no diaphoresis. NEURO: The patient is awake, alert, and oriented. The patient is cooperative. The patient has no focal neurologic deficits. Cranial nerves 2-12 grossly normal, power is 4/5 in the right upper extremity and 5/5 in the other left and both lower iextremities tested. The patient has normal speech . MUSCULOSKELETAL: There is no tenderness or deformity. There is no limitation range of motion. There is no evidence of acute injury. EXTREMITIES: No pedal edema, no varicose veins, good peripheral pulses symmetric al and bilaterally, no pretibial edema, no finger or toe clubbing. - Constitutional Vitals: Vital Signs - 12hr 09/13/18 09/13/18 09/14/18 21:54 22:00 04:13 Temperature 98.4 F 97.9 F Pulse Rate 70 71 Respiratory 18 18 Rate Respiratory 18 Rate [no pain] Blood Pressure 163/99 158/92 O2 Sat by Pulse 96 94 Oximetry - Labs CBC & Chem 7: 09/14/18 07:38 09/14/18 07:38 Labs: Abnormal lab results 09/14/18 09/14/18 Range/Units 07:38 07:38 RBC 5.53 H (3.65-5.03) M/mm3 Hgb 16.4 H (10.1-14.3) gm/dl Hct 49.1 H (30.3-42.9) % RDW 17.4 H (13.2-15.2) % Glucose 157 H (65-100) mg/dL
[2018-09-14] MEDS: COZAAR PO SCH (11:19)
[2018-09-14] MEDS: MOBIC PO SCH (11:19)
[2018-09-14] MEDS: HCTZ PO SCH (11:21)
[2018-09-14] MEDS: ROBAXIN PO SCH (11:21)
[2018-09-14] MEDS: COLACE PO SCH (11:21)
[2018-09-14] MEDS: ASPIRIN PO SCH (11:21)
[2018-09-14] MEDS: PAXIL PO SCH (11:22)
[2018-09-14] MEDS: LYRICA PO SCH (11:22)
[2018-09-14] MEDS: SODIUM CHLORIDE FLUSH SYRINGE 10 ML IV SCH (11:23)
[2018-09-14 18:12] VITALS: BP 176/97
--- NOTE | 2018-09-14 20:43 | Discharge Summary ---
Providers - Providers Date of Admission: 09/11/18 16:32 Date of discharge: 09/14/18 Attending physician: JOSE ALVA 09/12/18 11:07 Consult to Physician [CONS] Routine Comment: Consulting Provider: AMANDA BALBUENA Physician Instructions: Reason For Exam: parasthesia upper ext Primary care physician: BRANDEE REEVES Hospitalization Reason for admission: Headache ,Right sided weakness ,Uncontrolled hypertension Condition: Fair Pertinent studies: CT scan of Brain Procedures: MRI of [facility] Hospital course: Admitted with UNcontrolled Hypertension and right sided weakness . CT of Brain shoed Meningioma in the spine at level of C2 Patient blood pressure brought under control with meds . MRI confirmed ASpinal meingioma with mass effect [facility] Disposition: [id number] GEN HOSP IP - Discharge Diagnoses (1) Meningioma, spinal Status: Acute (2) Headache Status: Chronic Qualifiers: Headache type: tension-type Headache chronicity pattern: chronic headache Intractability: not intractable Qualified Code(s): G44.229 - Chronic tension- type headache, not intractable (3) Hypertensive urgency Status: Resolved Core Measure Documentation - Palliative Care Palliative Care/ Comfort Measures: Not Applicable - Core Measures Any of the following diagnoses?: none Exam - Physical Exam Narrative exam: GENERAL:Patient is not in acute distresse HEENT: Head examination showed normocephalic. Patient is not pale, not jaundiced, and not cyanosed. Mucous membrane is moist, pharynx is clear, no exudates or hemorrhage. Dentition is normal. NECK: Supple. Neck showed good range of motion. There is no adenopathy noted. No jugular venous distention and no thyromegaly. Neck auscultation showed no carotid bruit. CHEST/LUNGS: Good air exchange bilaterally. Clear to auscultation. There is no respiratory distress noted. Chest percussion normal, symmetrical chest movements with no chest wall tenderness. HEART/CARDIOVASCULAR: No murmur. Regular rate and rhythm. S1 and S2 only, no S3 gallop, no S4. ABDOMEN: Abdomen is soft, nontender. Patient has normal bowel sounds. There is no abdominal distention. Liver and spleen not palpably enlarged. SKIN: There is no rash. There is no edema. There is no diaphoresis. NEURO: The patient is awake, alert, and oriented. The patient is cooperative. The patient has no focal neurologic deficits. Cranial nerves 2-12 grossly normal, power is 4/5 in the right upper extremity and 5/5 in the other left and both lower iextremities tested. The patient has normal speech . MUSCULOSKELETAL: There is no tenderness or deformity. There is no limitation range of motion. There is no evidence of acute injury. EXTREMITIES: No pedal edema, no varicose veins, good peripheral pulses symmetrical and bilaterally, no pretibial edema, no finger or toe clubbing. - Constitutional Vitals: Temp Pulse Resp BP Pulse Ox 97.9 F 75 19 176/97 91 09/14/18 16:54 09/14/18 16:54 09/14/18 16:54 09/14/18 16:54 09/14/18 16:54 Plan Activity: no restrictions Weight Bearing Status: Full Weight Bearing Diet: low salt
== END 2018-09-14 20:30 | disposition short-term general hospital (02) | DRG 54 ==
LOC: ED 12:18 → CC1 16:32 → IMCU 22:03 → 3A 09-12 12:40
PROVIDERS: ADMIT Internal Medicine; ATTEND Internal Medicine
DX: D32.1 Benign neoplasm of spinal meninges (principal); G92 Toxic encephalopathy; G93.89 Other specified disorders of brain; M48.02 Spinal stenosis, cervical region; I67.4 Hypertensive encephalopathy; E66.2 Morbid (severe) obesity with alveolar hypoventilation; Z68.41 Body mass index [BMI] 40.0-44.9, adult; I16.0 Hypertensive urgency; F17.210 Nicotine dependence, cigarettes, uncomplicated; M19.90 Unspecified osteoarthritis, unspecified site; J44.9 Chronic obstructive pulmonary disease, unspecified; Z82.49 Family history of ischemic heart disease and other diseases of the circulatory system
CPT/HCPCS: 36415; 70450; 70551; 72125; 72156; 80048; 80053; 80061; 85025; 85027; 93005; 93010; 93306; 93880; G0378; A9270-GY; J1100; J1650